=== PATIENT | female | born 1935 | race Caucasian/White ===

== ENCOUNTER 2017-04-02 11:04 | Emergency (ER) | payer OTHER ==
[~2017-04-02] VITALS: Ht 152.4 cm; Wt 46.3 kg
--- NOTE | ~2017-04-02 | EKG ---
[place] [address] [facility] [facility] [place] [address] ELECTROCARDIOGRAM REPORT Name: IVY BOOTH Room [facility]: [facility] SPRINGSJeremie#: [id number] Admission: 04/02/17 Attend Phys: Discharge: 04/02/17 Date of : 31 Report #: [id number] THIS REPORT FOR: //name// [facility] ED Test Date: 2017-04-02 Test Time: 11:08:01 Pat Name: IVY BOOTH Department: Room: Gender: F Floor Covering Layer: COTY : 1935 Requested By: Carmen Caruso Order Number: [id number] MD: Peter Valdivia Measurements Intervals Cle[place] Rate: 76 P: 67 CO: 244 QRS: 263 QRSD: 148 T: 79 QT: 422 QTc: 475 Interpretive Statements Sinus rhythm Prolonged CO interval Probable left atrial enlargement Nonspecific IVCD with LAD Consider left ventricular hypertrophy Lateral infarct, old Anterior Q waves, possibly due to LVH No previous ECG available for comparison Electronically Signed On 04-02-2017 22:00:44 CDT by Peter Valdivia [email or web address] <ELECTRONICALLY SIGNED> By: Peter Valdivia MD 04/02/170 07 07 Peter Valdivia MD /FRANK
[2017-04-02 11:50] LABS: ABSOLUTE NEUTROPHILS 2.6 thou/uL (1.4-8.2); HEMOGLOBIN 12.9 gm/dL (12.0-15.0)
[2017-04-02 11:55] LABS: ANION GAP 11 mmol/L (7-16); BUN 26 mg/dL (7-18); CALCIUM 10.1 mg/dL (8.5-10.1); CHLORIDE 102 mmol/L (98-107); CO2 27 mmol/L (21-32); CREATININE 1.2 mg/dL (0.6-1.0); GLUCOSE 103 mg/dL (74-106); POTASSIUM 4.4 mmol/L (3.5-5.1); SODIUM 140 mmol/L (136-145)
[2017-04-02 11:56] LABS: BASOPHILS 0.6 % (0.0-2.0); EOSINOPHILS 0.5 % (0.0-3.0); HEMATOCRIT 34.5 % (37.0-47.0); LYMPHOCYTES 44.9 % (24.0-44.0); MCH 37.2 pg (26.0-34.0); MCHC 37.5 g/dL (28.0-37.0); MCV 99.4 fL (80.0-100.0); MONOCYTES 6.3 % (1.0-8.0); PLATELET COUNT 219 thou/uL (150-400); POLYS 47.7 % (36.0-66.0); RBC 3.47 mil/uL (4.20-5.00); WBC 5.6 thou/uL (4.0-11.0)
[2017-04-02 11:58] LABS: MANUAL DIFF NO
[2017-04-02 12:06] LABS: ALBUMIN 3.5 g/dL (3.4-5.0); ALKALINE PHOSPHATASE 65 U/L (46-116); NT-PRO BRAIN NAT PEPTIDE 797 pg/mL (<300); SGOT 17 U/L (15-37); SGPT 12 U/L (30-65); TOTAL BILIRUBIN 0.6 mg/dL (<0.1-1.0); TOTAL PROTEIN 7.6 g/dL (6.4-8.2); TROPONIN-I < 0.04 ng/mL (<0.04-0.07)
[2017-04-02 13:42] LABS: URINE BILIRUBIN NEGATIVE (Negative); URINE BLOOD NEGATIVE (Negative); URINE COLOR YELLOW; URINE GLUCOSE-RANDOM* NEGATIVE (Negative); URINE KETONES NEGATIVE (Negative); URINE NITRITE NEGATIVE (Negative); URINE PROTEIN (DIPSTICK) NEGATIVE (Negative); URINE SPECIFIC GRAVITY <= 1.005 (1.003-1.035)
[2017-04-02 14:14] VITALS: BP 126/54
== END 2017-04-02 14:15 | disposition home or self-care (01) ==
LOC: ER 11:04
PROVIDERS: Nurse Practitioner Family
DX: N28.9 Disorder of kidney and ureter, unspecified (principal); E86.0 Dehydration; I50.9 Heart failure, unspecified; Z88.5 Allergy status to narcotic agent; Z88.0 Allergy status to penicillin; Z88.8 Allergy status to other drugs, medicaments and biological substances